=== PATIENT | male | born 1970 | race American Indian/Alaskan Native ===

== ENCOUNTER 2018-02-16 07:35 | Day surgery (SDC) | payer BC ==
[2018-02-16 08:00] VITALS: O2SAT 100
[2018-02-16] MEDS ORDERED: Lactated Ringer's 1,000 ML IV ONE (10:10)
[2018-02-16] MEDS ORDERED: Propofol 10 mg/ml Inj (20 ML) ONE ×2 (10:14→10:29)
[2018-02-16 10:49] VITALS: TEMP 97.4
[2018-02-16 12:33] VITALS: BP 117/88; PULSE 68; RESP 12
== END 2018-02-16 12:20 | disposition home or self-care (01) ==
LOC: C.ENDO 07:35
PROVIDERS: ATTEND Internal Medicine Gastroenterology
DX: Z12.11 Encounter for screening for malignant neoplasm of colon (principal); K64.0 First degree hemorrhoids
CPT/HCPCS: 45378; J2704; J7120